=== PATIENT | male | born 1960 | race Caucasian/White ===

== ENCOUNTER 2020-03-19 10:04 | Emergency (ER) | payer MEDICARE, MEDICAID ==
[~2020-03-19] VITALS: Ht 177.8 cm; Wt 114.5 kg
[~2020-03-19 10:04] MED LIST: AMITRIPTYLINE H50 M1 PO; ASPIRIN 81M81 MG/TA2 PO; CYMBALTA 60MG60 MG PO; FLOMAX 0.40.4 MG/CAP PO; KAPSPARGO SPRIN25 MG PO; NEURONTIN800 MG/TAB PO; PROTONIX 40MG T40 MG PO; RT ALBUTER2.5 MG/0.5 IH; SINGULAIR 110 MG/TAB PO; SYNTHROID 0.10.15 MG PO; SYNTHROID0.112 MG/T PO; ZOCOR 40MG40 MG PO; ZOCOR 80MG80 MG PO; ZYPREXA10 MG PO
[2020-03-19 10:15] VITALS: TEMP 98.5
[2020-03-19 10:56] LABS: COLLECTION METHOD CLEAN CATCH
[2020-03-19 11:01] LABS: BASO % 0.4 % (0.0-2.0); EOS # 0.1 (0.0-0.7); EOS % 0.6 % (0-4.0); GRAN # 7.7 (1.4-6.5); GRAN % 78.7 % (42.2-75.2); HEMATOCRIT 47.2 % (42.0-52.0); HEMOGLOBIN 16.1 g/dl (13.5-18.0); LYMPH # 1.3 (1.2-3.4); LYMPH % 13.3 % (20.0-51.0); MEAN CELL VOLUME 91 fl (80.0-100.0); MEAN CORPUSCULAR HEMOGLOBIN 31 pg (27.0-31.0); MEAN CORPUSCULAR HGB CONC 34 g/dl (33.0-37.0); MEAN PLATELET VOLUME 11.1 fl (7.4-10.4); MONO # 0.7 (0.1-0.6); MONO % 6.7 % (1.7-9.3); PLATELET COUNT 261 K/mm3 (130-400); RED BLOOD COUNT 5.19 M/mm3 (4.20-5.60); REDCELL DISTRIBUTION WIDTH-CV 13.7 % (11.5-14.5)
[2020-03-19 11:07] LABS: PH 6 (5-8); SQUAMOUS EPITHELIAL 0-2 /hpf; URINE APPEARANCE Clear; URINE BACTERIA None Seen /hpf; URINE BILIRUBIN Negative (NEGATIVE); URINE BLOOD 2+ (NEGATIVE); URINE COLOR Yellow; URINE GLUCOSE Negative (NEGATIVE); URINE KETONE Negative (NEGATIVE); URINE LEUKOCYTE ESTERASE Negative (NEGATIVE); URINE NITRATE Negative (NEGATIVE); URINE PROTEIN(semi-quant) Negative (NEGATIVE); URINE UROBILINOGEN Negative (NEGATIVE); URINE WBC 0-2 /hpf
[2020-03-19 11:12] LABS: ALBUMIN 4.5 gm/dL (3.5-5.0); BILIRUBIN,TOTAL 0.9 mg/dL (0.0-1.0); CALCIUM 9.4 mg/dL (8.4-10.2); CREATININE, serum 0.99 (0.66-1.25); POTASSIUM 4.1 mmol/L (3.4-5.0); TOTAL PROTEIN 7.4 gm/dL (6.4-8.2)
[2020-03-19] MEDS ORDERED: PROTONIX20 MG PO (12:16)
[2020-03-19] MEDS ORDERED: ZOFRAN 4MG T4 MG/TAB PO (12:16)
[2020-03-19 12:43] VITALS: BP 118/89; PULSE 79
== END 2020-03-19 12:45 | disposition home or self-care (01) ==
LOC: COL.ER 10:04 → EDBD 10:06 → COL.ER 10:06
PROVIDERS: Nurse Practitioner Primary Care
DX: K29.70 Gastritis, unspecified, without bleeding (principal); Z90.89 Acquired absence of other organs; Z88.1 Allergy status to other antibiotic agents; Z88.6 Allergy status to analgesic agent
CPT/HCPCS: J7030; Q9967

== ENCOUNTER → 2020-05-07 | Outpatient (CLI) | payer MEDICARE, MEDICAID ==
[~2020-05-07] MED LIST changes: +PROTONIX20 MG PO; +ZOFRAN 4MG T4 MG/TAB PO
== END ==
LOC: COL.RAD 09:57
DX: E04.9 Nontoxic goiter, unspecified (principal)

== ENCOUNTER → 2020-07-25 | Outpatient (CLI) | payer MEDICARE, MEDICAID ==
[~2020-07-25] MED LIST changes: +BACTRIM DS 8001 TAB PO; +CARAFATE 1GM1 G PO; +IMODIUM 2MG CAPS2 MG PO; +LEVAQUIN 750MG750 M1 PO; +PROBIOTIC-MAJOR PO
== END ==
LOC: COL.RAD 13:12
DX: R22.1 Localized swelling, mass and lump, neck (principal)

== ENCOUNTER 2020-10-02 13:55 | Observation (INO) | payer MEDICARE, MEDICAID ==
[~2020-10-02] VITALS: Ht 177.8 cm; Wt 116.0 kg
[2020-10-02] VITALS (10 sets, daily range): BP systolic 131–154; BP diastolic 85–98; PULSE 86–137; TEMP 97–98.2
[~2020-10-02 13:55] MED LIST changes: -BACTRIM DS 8001 TAB PO; -CARAFATE 1GM1 G PO; -IMODIUM 2MG CAPS2 MG PO; -LEVAQUIN 750MG750 M1 PO; -PROBIOTIC-MAJOR PO
--- NOTE | 2020-10-02 14:50 | NUR ---
Patient states an attempt to self harm years in the past. report the patient has a great support system in place and is seeing a mental health professional regularly to monitor mental health.
[2020-10-02] MEDS ORDERED: CARAFATE 1GM1 G PO (15:23)
--- NOTE | 2020-10-02 19:15 | NUR ---
Arrived to room 342 from PACU. Oreinted to room/policy. New orders intitiated and post op vitals started. Call light in reach. Will monitor.
[2020-10-02 22:14] LABS: BASO # 0.1 (0.0-0.2); BASO % 0.3 % (0.0-2.0); EOS % 0.2 % (0-4.0); GRAN % 86.4 % (42.2-75.2); HEMOGLOBIN 17.6 g/dl (13.5-18.0); LYMPH # 1.4 (1.2-3.4); LYMPH % 7.4 % (20.0-51.0); MEAN CELL VOLUME 93 fl (80.0-100.0); MEAN CORPUSCULAR HEMOGLOBIN 31 pg (27.0-31.0); MEAN CORPUSCULAR HGB CONC 34 g/dl (33.0-37.0); MEAN PLATELET VOLUME 10.6 fl (7.4-10.4); MONO % 5.2 % (1.7-9.3); PLATELET COUNT 282 K/mm3 (130-400); RED BLOOD COUNT 5.67 M/mm3 (4.20-5.60); REDCELL DISTRIBUTION WIDTH-CV 14.5 % (11.5-14.5)
[2020-10-02 22:15] LABS: HEMATOCRIT 52.6 % (42.0-52.0)
[2020-10-02 22:24] LABS: ALBUMIN 4.6 gm/dL (3.5-5.0); BILIRUBIN,TOTAL 1.1 mg/dL (0.0-1.0); CALCIUM 9.7 mg/dL (8.4-10.2); CREATININE, serum 1.03 (0.66-1.25); POTASSIUM 3.6 mmol/L (3.4-5.0); TOTAL PROTEIN 8.2 gm/dL (6.4-8.2)
[2020-10-02 22:25] LABS: MAGNESIUM 1.8 mg/dL (1.6-2.3)
[2020-10-02 23:28] LABS: TSH w REFLEX 1.21 uIU/mL (0.465-4.680)
[2020-10-03 05:23] VITALS: BP 120/72; PULSE 85; TEMP 98.8
--- NOTE | 2020-10-03 06:00 | NUR ---
Rested off and on this shift. C/O a sore throat-chloreseptic spray provided with little relief. Also complained of heartburn-Maalox ordered and given with good relief. Voiding without difficulty. Tolerating PO. Dressing to right/back of neck still CDI. Denies pain/shortness of breath. VS remained stable-slight elevation in BP-Hospitalist aware. Has been NSR on tele since approx 0200. Denies current needs. Call light in reach. Will monitor.
--- NOTE | 2020-10-03 06:42 | NUR ---
Pt awake on the phone, denies needs at this time
[2020-10-03 07:21] LABS: HEMATOCRIT 49.2 % (42.0-52.0); HEMOGLOBIN 16.3 g/dl (13.5-18.0); MEAN CELL VOLUME 92 fl (80.0-100.0); MEAN CORPUSCULAR HEMOGLOBIN 30 pg (27.0-31.0); MEAN CORPUSCULAR HGB CONC 33 g/dl (33.0-37.0); MEAN PLATELET VOLUME 11.2 fl (7.4-10.4); PLATELET COUNT 267 K/mm3 (130-400); RED BLOOD COUNT 5.36 M/mm3 (4.20-5.60); REDCELL DISTRIBUTION WIDTH-CV 14.5 % (11.5-14.5)
[2020-10-03 07:34] VITALS: BP 122/76; PULSE 83; TEMP 98.7
[2020-10-03 07:49] LABS: CALCIUM 9.3 mg/dL (8.4-10.2); CREATININE, serum 0.98 (0.66-1.25); POTASSIUM 3.7 mmol/L (3.4-5.0)
[2020-10-03 08:38] LABS: BAND 8 % (0-10); LYMPHOCYTE 11 % (20.0-51.0); NEUTROPHILS 73 % (42.0-75.2)
[2020-10-03 08:40] LABS: PLATELET ESTIMATE NORMAL (NORMAL)
--- NOTE | 2020-10-03 09:00 | NUR ---
Dr Walker in with pt at this time
--- NOTE | 2020-10-03 10:11 | NUR ---
Fleet Maintenance Foreman met with the patient to complete intake. The patient prefers to speak primarily in [place]. The patient lives independently in [place] with his , Daisy. The patient has a cane in case he needs it. The patient's PCP is Dr. Izaguirre. The patient does not have advanced directives in the EMR. The patient does not know what pharamcy is used for medications. The patient contacted his , Daisy and put her on speaker phone. The patient receives his medications from [facility] and via mail from [facility]. The plan is for the patient to return home at discharge. *Discharge disposition: Home with spouse, Daisy
--- NOTE | 2020-10-03 11:30 | NUR ---
Pt did not eat much for breakfast/lunch, states doesn't feel well. reports that he was complaining of feeling nauseated, per patient, he stated that he is just a little nauseated, but does not want anything. Pt asking about taking a shower. Informed him that I would need to call the physician to ensure it was okay. No other needs, will continue to monitor
[2020-10-03 11:50] VITALS: BP 130/80; PULSE 85; TEMP 98.5
--- NOTE | 2020-10-03 14:59 | NUR ---
Assisting pt to get in the shower, linens changed. Pts is present in the room. No pain complaints at the incision site, just has complaints of sore throat. Incision does have some drainage, will replace dressing after his shower.
--- NOTE | 2020-10-03 15:07 | NUR ---
Initial visit; Patient thanked Senior Energy Consultant for looking in on him and offering God's blessings though declined spiritual care at this time.
--- NOTE | 2020-10-03 15:15 | NUR ---
Pt done in the shower. Reports feeling nauseated and a little dizzy. PRN nausea medication given. Respiratory in drawing ABGs. Will check VS
[2020-10-03 15:25] VITALS: BP 126/70; PULSE 92; TEMP 98.4
--- NOTE | 2020-10-03 15:49 | NUR ---
Pt still having complaints of feeling dizzy, and over all not feeling well. Attempted to call Dr Albert with no answer. Called and talked to Kwesi, his office nurse.
--- NOTE | 2020-10-03 18:17 | NUR ---
Pt reports not feeling as dizzy anymore. Still complains of his stomach not feeling well as well as having acid reflux and coughing up phlegm. Gave PRN mouth wash. Pt reports not wanting anything to eat at this time. stool sample sent down earlier, awaiting results
[2020-10-03 18:49] LABS: CLOSTRIDIUM DIFF A/B NEG; CLOSTRIDIUM DIFF A/B INTERP No C.diff present
--- NOTE | 2020-10-03 20:00 | NUR ---
Report received, assumed care for weight shifter. Assessment complete. A&Ox3-drowsy. Still with c/o sore throat. Chloreseptic spray at bedside but doesnt give much relief. States magic mouthwash works well. Has tolerated some PO intake-has had several containers of apple sauce and H2O but is not interested in much more. Dressing to right posterior neck CDI. LR infusing at 100ml/hr to right hand IV. Denies questions/concerns. Call light in reach. Will monitor.
[2020-10-03 21:00] VITALS: BP 137/83; PULSE 93; TEMP 98.8
[2020-10-04 00:16] VITALS: BP 145/93; PULSE 94; TEMP 98.5
--- NOTE | 2020-10-04 00:20 | NUR ---
Notified hospitalist of [facility] of patients c/o shortness of breath. States he is more short of air when getting up to bathroom. Also noted to have a slight elevation in blood pressure. New orders received and initiated.
--- NOTE | 2020-10-04 00:28 | NUR ---
Radiology notified of new orders for chest x ray.
--- NOTE | 2020-10-04 00:40 | NUR ---
Radiology at bedside for chest x ray.
--- NOTE | 2020-10-04 00:54 | NUR ---
Cardiopulm at bedside for ABG
--- NOTE | 2020-10-04 01:16 | NUR ---
O2@2L/NC per respiratory due to low O2 ABG.
[2020-10-04 01:20] LABS: ARTERIAL BLD GAS O2 SATURATION 92.6 % (92-100); ARTERIAL BLD GAS TCO2 CT 19.9; ARTERIAL BLOOD GAS BASE EXCESS -3.5 (-2-2); ARTERIAL BLOOD GAS PCO2 28.6 mmHg (35-45); ARTERIAL BLOOD GAS PO2 60.4 mmHg (80-100); ARTERIAL BLOOD GAS pH 7.44 (7.35-7.45)
--- NOTE | 2020-10-04 02:30 | NUR ---
Continues to have very watery stools. Discussed with [facility] Snell and new orders placed. Instructed patient to call with next stool so it can be collected. Verbalizes understanding. Call light in reach. Will monitor.
--- NOTE | 2020-10-04 02:53 | NUR ---
LR restarted at this time at 60ml/hr per dr order.
[2020-10-04 04:00] VITALS: BP 143/91; PULSE 97; TEMP 97.4
--- NOTE | 2020-10-04 05:35 | NUR ---
Did not rest much this shift due to liquid stool. Has had episodes of indigestion but no nausea. DId speak with this AM to help translate. states patient has battled indigestion for years and takes maalox regularly at home. O2 continues @2L/NC. Blood pressure slightly elevated-Hospitalist aware. Denies questions/concerns. Call light in reach. Will monitor.
[2020-10-04 06:31] LABS: HEMATOCRIT 49.7 % (42.0-52.0); HEMOGLOBIN 16.9 g/dl (13.5-18.0); MEAN CELL VOLUME 91 fl (80.0-100.0); MEAN CORPUSCULAR HEMOGLOBIN 31 pg (27.0-31.0); MEAN CORPUSCULAR HGB CONC 34 g/dl (33.0-37.0); MEAN PLATELET VOLUME 10.5 fl (7.4-10.4); PLATELET COUNT 283 K/mm3 (130-400); RED BLOOD COUNT 5.48 M/mm3 (4.20-5.60); REDCELL DISTRIBUTION WIDTH-CV 14.4 % (11.5-14.5)
[2020-10-04 06:45] LABS: ALBUMIN 4.4 gm/dL (3.5-5.0); BILIRUBIN,TOTAL 1.5 mg/dL (0.0-1.0); CALCIUM 9.5 mg/dL (8.4-10.2); POTASSIUM 3.7 mmol/L (3.4-5.0); TOTAL PROTEIN 7.9 gm/dL (6.4-8.2)
[2020-10-04 07:21] LABS: BAND 5 % (0-10); LYMPHOCYTE 8 % (20.0-51.0); NEUTROPHILS 75 % (42.0-75.2); PLATELET ESTIMATE NORMAL (NORMAL)
[2020-10-04 08:44] VITALS: BP 126/85; PULSE 92; TEMP 97.4
--- NOTE | 2020-10-04 09:00 | NUR ---
Pt continues to go to the restroom often with liquid stool. PRN immodium given. Pt reports minimal pain at the incision site. Still does not feel up to eating or drinking much. No other needs verbalized, encouraged some toast or applesauce which he agreed to try
--- NOTE | 2020-10-04 10:30 | NUR ---
Pt reports that the immodium helped. Overall feels well. Dr Walker has been to see patient. Pt denies any needs
--- NOTE | 2020-10-04 11:40 | NUR ---
Hospitalist has been in to see patient. Pt feels comfortable going home as he reports feeling better. States he is not having liquid stool as often. Did give another dose of immodium. Informed him to notify nursing when his arrives to go over paperwork
[2020-10-04] MEDS ORDERED: ZOFRAN 4MG T4 MG/TAB PO (11:41)
[2020-10-04] MEDS ORDERED: LEVAQUIN 750MG750 M1 PO (11:42)
[2020-10-04] MEDS ORDERED: PROBIOTIC-MAJOR PO (11:44)
--- NOTE | 2020-10-04 13:00 | NUR ---
Reviewed discharge instructions with pt and his to include follow up appoitments and prescriptions. All questions answered, int removed from right hand and pt escorted out
[2020-10-04] MEDS ORDERED: IMODIUM 2MG CAPS2 MG PO (14:21)
--- NOTE | 2020-10-04 14:21 | NUR ---
Tube Builder attended clinical rounds with the team. Patient is mostly [place] speaking. Hospitalist used medical sales representative line. The patient is currently on oxygen. An exercise oximetry was ordered. The patient did not qualify for oxygen. The patient is independent and discharged home this day, 10/04 with family. There are no additional needs.
== END 2020-10-04 13:20 | disposition home or self-care (01) ==
LOC: SDCO 13:55 → SURG 19:31
PROVIDERS: Internal Medicine Pulmonary Disease; Physician Assistant; Student in an Organized Health Care Education/Training Program; ADMIT Surgery
DX: D17.0 Benign lipomatous neoplasm of skin and subcutaneous tissue of head, face and neck (principal); R68.89 Other general symptoms and signs; A49.02 Methicillin resistant Staphylococcus aureus infection, unspecified site; J18.9 Pneumonia, unspecified organism; I48.0 Paroxysmal atrial fibrillation; R09.02 Hypoxemia; I10 Essential (primary) hypertension; G47.33 Obstructive sleep apnea (adult) (pediatric); I27.20 Pulmonary hypertension, unspecified; J44.9 Chronic obstructive pulmonary disease, unspecified; F29 Unspecified psychosis not due to a substance or known physiological condition; R19.7 Diarrhea, unspecified; E89.0 Postprocedural hypothyroidism; N40.0 Benign prostatic hyperplasia without lower urinary tract symptoms; K21.9 Gastro-esophageal reflux disease without esophagitis; E87.1 Hypo-osmolality and hyponatremia; E78.5 Hyperlipidemia, unspecified; E78.00 Pure hypercholesterolemia, unspecified; R53.81 Other malaise; E66.01 Morbid (severe) obesity due to excess calories; Z68.35 Body mass index [BMI] 35.0-35.9, adult; Z79.82 Long term (current) use of aspirin; Z87.891 Personal history of nicotine dependence; Z79.890 Hormone replacement therapy; Z79.899 Other long term (current) drug therapy
CPT/HCPCS: G0378; J0690; J1650; J1885; J2405; J2704; J7120

== ENCOUNTER → 2020-11-13 | Outpatient (CLI) | payer MEDICARE ==
[~2020-11-13] MED LIST changes: +BACTRIM DS 8001 TAB PO; +CARAFATE 1GM1 G PO; +IMODIUM 2MG CAPS2 MG PO; +LEVAQUIN 750MG750 M1 PO; +PROBIOTIC-MAJOR PO
== END ==
LOC: COL.RAD 13:44
DX: R05 Cough (principal)
CPT/HCPCS: Q9967

== ENCOUNTER 2021-02-17 13:58 | Emergency (ER) | payer MEDICARE ==
[~2021-02-17] VITALS: Ht 177.8 cm; Wt 115.5 kg
[~2021-02-17 13:58] MED LIST changes: -BACTRIM DS 8001 TAB PO
[2021-02-17 14:15] VITALS: TEMP 98
[2021-02-17] MEDS ORDERED: BACTRIM DS 8001 TAB PO (14:15)
[2021-02-17 14:44] LABS: COLLECTION METHOD CLEAN CATCH
[2021-02-17 14:48] LABS: BASO # 0.1 K/mm3 (0.0-0.2); BASO % 0.8 % (0.0-2.0); EOS # 0.2 K/mm3 (0.0-0.7); EOS % 2.3 % (0-4.0); GRAN # 4.9 K/mm3 (1.4-6.5); GRAN % 61.2 % (42.2-75.2); HEMATOCRIT 46.3 % (42.0-52.0); HEMOGLOBIN 15.9 g/dl (13.5-18.0); LYMPH # 2.2 K/mm3 (1.2-3.4); LYMPH % 27.1 % (20.0-51.0); MEAN CELL VOLUME 90 fl (80.0-100.0); MEAN CORPUSCULAR HEMOGLOBIN 31 pg (27.0-31.0); MEAN CORPUSCULAR HGB CONC 34 g/dl (33.0-37.0); MONO # 0.7 K/mm3 (0.1-0.6); MONO % 8.1 % (1.7-9.3); PLATELET COUNT 240 K/mm3 (130-400); RED BLOOD COUNT 5.13 M/mm3 (4.20-5.60); REDCELL DISTRIBUTION WIDTH-CV 14.2 % (11.5-14.5)
[2021-02-17 14:51] LABS: MUCOUS Present /lpf; PH 5 (5-8); SQUAMOUS EPITHELIAL 0-2 /hpf; URINE APPEARANCE Clear; URINE BACTERIA None Seen /hpf; URINE BILIRUBIN Negative (NEGATIVE); URINE BLOOD Negative (NEGATIVE); URINE COLOR Yellow; URINE GLUCOSE Negative (NEGATIVE); URINE KETONE Negative (NEGATIVE); URINE LEUKOCYTE ESTERASE Negative (NEGATIVE); URINE NITRATE Negative (NEGATIVE); URINE PROTEIN(semi-quant) Negative (NEGATIVE)
[2021-02-17 15:10] LABS: BILIRUBIN,TOTAL 0.5 mg/dL (0.2-1.2); C-REACTIVE PROTEIN 0.03 mg/dL (0.00-0.50); CALCIUM 9.3 mg/dL (8.4-10.2); CREATININE, serum 1.19 mg/dL (0.72-1.25); POTASSIUM 4.3 mmol/L (3.5-4.5); TOTAL PROTEIN 7.1 gm/dL (6.2-8.1)
[2021-02-17 17:11] VITALS: BP 133/85; PULSE 62
== END 2021-02-17 17:14 | disposition home or self-care (01) ==
LOC: COL.ER 13:58
PROVIDERS: Physician Assistant
DX: R10.30 Lower abdominal pain, unspecified (principal); N39.0 Urinary tract infection, site not specified; J44.9 Chronic obstructive pulmonary disease, unspecified; I10 Essential (primary) hypertension; E66.01 Morbid (severe) obesity due to excess calories; E03.9 Hypothyroidism, unspecified; F32.A Depression, unspecified; I48.91 Unspecified atrial fibrillation; K21.9 Gastro-esophageal reflux disease without esophagitis; Z68.36 Body mass index [BMI] 36.0-36.9, adult; Z79.890 Hormone replacement therapy; Z79.82 Long term (current) use of aspirin; Z79.899 Other long term (current) drug therapy
CPT/HCPCS: J2270; J2405; J7030; Q9967

== ENCOUNTER 2021-07-28 11:23 | Emergency (ER) | payer MEDICARE ==
[~2021-07-28] VITALS: Ht 177.8 cm; Wt 116.4 kg
[~2021-07-28 11:23] MED LIST changes: +BACTRIM DS 8001 TAB PO
[2021-07-28 12:11] LABS: COLLECTION METHOD CLEAN CATCH
[2021-07-28 12:15] LABS: BASO % 0.3 % (0.0-2.0); EOS # 0.1 K/mm3 (0.0-0.7); EOS % 1.4 % (0.0-4.0); GRAN # 7.2 K/mm3 (1.4-6.5); GRAN % 74.3 % (42.2-75.2); HEMATOCRIT 46.5 % (42.0-52.0); HEMOGLOBIN 16.2 g/dl (13.5-18.0); LYMPH # 1.6 K/mm3 (1.2-3.4); LYMPH % 16.6 % (20.0-51.0); MEAN CELL VOLUME 87 fl (80.0-100.0); MEAN CORPUSCULAR HEMOGLOBIN 31 pg (27-31); MEAN CORPUSCULAR HGB CONC 35 g/dl (33.0-37.0); MEAN PLATELET VOLUME 10.2 fl (7.4-10.4); MONO # 0.7 K/mm3 (0.1-0.6); PLATELET COUNT 242 K/mm3 (130-400); RED BLOOD COUNT 5.32 M/mm3 (4.20-5.60)
[2021-07-28 12:19] LABS: MUCOUS Present (NOT PRESENT); PH 5 (5-8); SQUAMOUS EPITHELIAL None Seen /hpf (0-10); URINE APPEARANCE Clear (CLEAR/HAZY); URINE BACTERIA None Seen /hpf (NONE SEEN); URINE BILIRUBIN Negative (NEGATIVE); URINE BLOOD 2+ (NEGATIVE); URINE COLOR Yellow (YELLOW); URINE GLUCOSE Negative (NEGATIVE); URINE KETONE Negative (NEGATIVE); URINE LEUKOCYTE ESTERASE Negative (NEGATIVE); URINE NITRATE Negative (NEGATIVE); URINE PROTEIN(semi-quant) Negative (NEGATIVE); URINE UROBILINOGEN Negative (NEGATIVE)
[2021-07-28 12:32] LABS: ALBUMIN 4.3 gm/dL (3.5-5.0); BILIRUBIN,TOTAL 1.3 mg/dL (0.2-1.2); CALCIUM 9.4 mg/dL (8.4-10.2); CREATININE, serum 1.04 mg/dL (0.72-1.25); POTASSIUM 4.3 mmol/L (3.5-4.5); TOTAL PROTEIN 7.5 gm/dL (6.2-8.1)
[2021-07-28] MEDS ORDERED: BENTYL 10MG10 MG/CAP PO (14:16)
[2021-07-28 14:26] VITALS: BP 121/80; PULSE 78; TEMP 97.8
== END 2021-07-28 14:26 | disposition home or self-care (01) ==
LOC: COL.ER 11:23
PROVIDERS: Physician Assistant
DX: K76.0 Fatty (change of) liver, not elsewhere classified (principal)
CPT/HCPCS: J2405; Q9967

== ENCOUNTER 2021-08-18 11:08 | Emergency (ER) | payer MEDICARE, MEDICAID ==
[~2021-08-18] VITALS: Ht 175.3 cm; Wt 109.1 kg
[~2021-08-18 11:08] MED LIST changes: +BENTYL 10MG10 MG/CAP PO
[2021-08-18 11:18] VITALS: TEMP 98.5
[2021-08-18 11:47] LABS: BASO % 0.4 % (0.0-2.0); EOS # 0.2 K/mm3 (0.0-0.7); EOS % 2.5 % (0.0-4.0); GRAN # 5.4 K/mm3 (1.4-6.5); GRAN % 70.1 % (42.2-75.2); HEMATOCRIT 47.8 % (42.0-52.0); HEMOGLOBIN 16.2 g/dl (13.5-18.0); LYMPH # 1.5 K/mm3 (1.2-3.4); LYMPH % 18.8 % (20.0-51.0); MEAN CELL VOLUME 89 fl (80.0-100.0); MEAN CORPUSCULAR HEMOGLOBIN 30 pg (27-31); MEAN CORPUSCULAR HGB CONC 34 g/dl (33.0-37.0); MEAN PLATELET VOLUME 10.3 fl (7.4-10.4); MONO # 0.6 K/mm3 (0.1-0.6); MONO % 7.8 % (1.7-9.3); PLATELET COUNT 221 K/mm3 (130-400); RED BLOOD COUNT 5.35 M/mm3 (4.20-5.60); REDCELL DISTRIBUTION WIDTH-CV 14.6 % (11.5-14.5)
[2021-08-18 12:05] LABS: ERYTHROCYTE SEDIMENTATION RATE 2 mm/hr (0-30)
[2021-08-18 12:31] LABS: ALANINE AMINOTRANSFERASE 38 U/L (0-55); ALBUMIN 4.2 gm/dL (3.4-4.8); ALKALINE PHOSPHATASE 103 U/L (40-150); ANION GAP 10 mmol/L (7-16); AST,SGOT 26 U/L (5-34); BLOOD UREA NITROGEN 12 mg/dL (8-26); C-REACTIVE PROTEIN 0.03 mg/dL (0.00-0.50); CALCIUM 9.2 mg/dL (8.4-10.2); CARBON DIOXIDE 22 mmol/L (23-31); CHLORIDE 106 mmol/L (98-107); CREATININE, serum 0.96 mg/dL (0.72-1.25); GLUCOSE 125 mg/dL (70-99); POTASSIUM 3.9 mmol/L (3.5-4.5); SODIUM 138 mmol/L (136-145)
[2021-08-18 12:39] LABS: COLLECTION METHOD CLEAN CATCH
[2021-08-18 12:40] LABS: TROPONIN-I < 0.010 ng/mL (0.00-0.033)
[2021-08-18 12:45] LABS: MUCOUS Present (NOT PRESENT); PH 5 (5-8); SQUAMOUS EPITHELIAL None Seen /hpf (0-10); URINE APPEARANCE Clear (CLEAR/HAZY); URINE BACTERIA None Seen /hpf (NONE SEEN); URINE BILIRUBIN Negative (NEGATIVE); URINE BLOOD 1+ (NEGATIVE); URINE COLOR Yellow (YELLOW); URINE GLUCOSE Negative (NEGATIVE); URINE KETONE Negative (NEGATIVE); URINE LEUKOCYTE ESTERASE Negative (NEGATIVE); URINE NITRATE Negative (NEGATIVE); URINE PROTEIN(semi-quant) Negative (NEGATIVE); URINE UROBILINOGEN Negative (NEGATIVE)
[2021-08-18 14:06] VITALS: BP 101/65; PULSE 60
[2021-08-20] MEDS ORDERED: ULTRAM 50MG TAB50 MG PO (03:31)
[2021-08-20] MEDS ORDERED: VALTREX1 GM PO (03:31)
[2021-08-20] MEDS ORDERED: PREDNISONE20 MG PO (04:07)
[2021-08-20] MEDS ORDERED: PERCOCET 325 MG1 TA2 PO (04:38)
== END 2021-08-18 14:12 | disposition home or self-care (01) ==
LOC: COL.ER 11:08
PROVIDERS: Emergency Medicine
DX: H53.8 Other visual disturbances (principal); Z98.41 Cataract extraction status, right eye
CPT/HCPCS: J0780; J1200; Q9967

== ENCOUNTER 2021-08-29 05:47 | Emergency (ER) | payer MEDICARE, MEDICAID ==
[~2021-08-29] VITALS: Ht 182.9 cm; Wt 95.5 kg
[~2021-08-29 05:47] MED LIST changes: +PERCOCET 325 MG1 TA2 PO; +PREDNISONE20 MG PO; +ULTRAM 50MG TAB50 MG PO; +VALTREX1 GM PO
[2021-08-29 05:54] VITALS: TEMP 98.6
[2021-08-29 06:20] LABS: BASO % 0.2 % (0.0-2.0); EOS # 0.2 K/mm3 (0.0-0.7); EOS % 1.2 % (0.0-4.0); GRAN # 8.8 K/mm3 (1.4-6.5); GRAN % 70.6 % (42.2-75.2); HEMATOCRIT 48.1 % (42.0-52.0); HEMOGLOBIN 16.3 g/dl (13.5-18.0); LYMPH # 2.4 K/mm3 (1.2-3.4); LYMPH % 19.1 % (20.0-51.0); MEAN CELL VOLUME 89 fl (80.0-100.0); MEAN CORPUSCULAR HEMOGLOBIN 30 pg (27-31); MEAN CORPUSCULAR HGB CONC 34 g/dl (33.0-37.0); MEAN PLATELET VOLUME 10.4 fl (7.4-10.4); MONO % 7.9 % (1.7-9.3); PLATELET COUNT 254 K/mm3 (130-400); RED BLOOD COUNT 5.39 M/mm3 (4.20-5.60); REDCELL DISTRIBUTION WIDTH-CV 14.6 % (11.5-14.5)
[2021-08-29 06:35] LABS: ALANINE AMINOTRANSFERASE 40 U/L (0-55); ALBUMIN 4.1 gm/dL (3.4-4.8); ALKALINE PHOSPHATASE 117 U/L (40-150); ANION GAP 10 mmol/L (7-16); AST,SGOT 23 U/L (5-34); BILIRUBIN,TOTAL 0.7 mg/dL (0.2-1.2); BLOOD UREA NITROGEN 10 mg/dL (8-26); CALCIUM 8.9 mg/dL (8.4-10.2); CARBON DIOXIDE 21 mmol/L (23-31); CHLORIDE 104 mmol/L (98-107); CREATININE, serum 1.17 mg/dL (0.72-1.25); GLUCOSE 116 mg/dL (70-99); LIPASE 20 U/L (8-78); POTASSIUM 3.9 mmol/L (3.5-4.5); SODIUM 135 mmol/L (136-145); TOTAL PROTEIN 6.8 gm/dL (6.2-8.1)
[2021-08-29 06:42] LABS: TROPONIN-I < 0.010 ng/mL (0.00-0.033)
[2021-08-29 09:04] VITALS: BP 115/85; PULSE 65
== END 2021-08-29 09:10 | disposition home or self-care (01) ==
LOC: COL.ER 05:47
PROVIDERS: Student in an Organized Health Care Education/Training Program
DX: R10.9 Unspecified abdominal pain (principal); R07.9 Chest pain, unspecified; E87.1 Hypo-osmolality and hyponatremia; D72.829 Elevated white blood cell count, unspecified
CPT/HCPCS: J1885; Q9967

== ENCOUNTER 2022-05-26 10:58 | Emergency (ER) | payer MEDICARE, MEDICAID ==
[~2022-05-26] VITALS: Ht 175.3 cm; Wt 115.5 kg
[2022-05-26 11:08] VITALS: TEMP 98.7
[2022-05-26 11:51] LABS: BASO # 0.1 K/mm3 (0.0-0.2); BASO % 0.7 % (0.0-2.0); EOS # 0.2 K/mm3 (0.0-0.7); EOS % 2.2 % (0.0-4.0); GRAN # 5.7 K/mm3 (1.4-6.5); HEMATOCRIT 48.5 % (42.0-52.0); HEMOGLOBIN 15.9 g/dl (13.5-18.0); LYMPH # 1.9 K/mm3 (1.2-3.4); LYMPH % 21.9 % (20.0-51.0); MEAN CELL VOLUME 93 fl (80.0-100.0); MEAN CORPUSCULAR HEMOGLOBIN 31 pg (27-31); MEAN CORPUSCULAR HGB CONC 33 g/dl (33.0-37.0); MEAN PLATELET VOLUME 10.4 fl (7.4-10.4); MONO # 0.7 K/mm3 (0.1-0.6); MONO % 7.8 % (1.7-9.3); PLATELET COUNT 212 K/mm3 (130-400); RED BLOOD COUNT 5.21 M/mm3 (4.20-5.60); REDCELL DISTRIBUTION WIDTH-CV 13.9 % (11.5-14.5)
[2022-05-26 12:07] LABS: BILIRUBIN,TOTAL 0.8 mg/dL (0.2-1.2); CALCIUM 9.5 mg/dL (8.4-10.2); CREATININE, serum 1.22 mg/dL (0.72-1.25); POTASSIUM 4.6 mmol/L (3.5-4.5)
[2022-05-26 12:22] LABS: COLLECTION METHOD CLEAN CATCH
[2022-05-26 12:31] LABS: MUCOUS Present (NOT PRESENT); SQUAMOUS EPITHELIAL 0-2 /hpf (0-10); URINE APPEARANCE Clear (CLEAR/HAZY); URINE BACTERIA None Seen /hpf (NONE SEEN); URINE COLOR Yellow (YELLOW); URINE RBC 0-2 /hpf (0-2)
[2022-05-26 12:32] LABS: PH 5.5 (5.0-8.5); URINE BLOOD 2+ (NEGATIVE); URINE GLUCOSE Negative (NEGATIVE); URINE KETONE Negative (NEGATIVE); URINE NITRATE Negative (NEGATIVE); URINE PROTEIN(semi-quant) Negative (NEGATIVE); URINE UROBILINOGEN 0.2 E.U/dL (0.2-1.0)
[2022-05-26 14:56] VITALS: BP 127/83; PULSE 62
== END 2022-05-26 14:58 | disposition home or self-care (01) ==
LOC: COL.ER 10:58
PROVIDERS: Physician Assistant
DX: R10.84 Generalized abdominal pain (principal); K59.00 Constipation, unspecified; Z87.19 Personal history of other diseases of the digestive system; Z90.49 Acquired absence of other specified parts of digestive tract; Z88.5 Allergy status to narcotic agent
CPT/HCPCS: J2270; J2405; J7030; Q9967

== ENCOUNTER 2022-06-03 06:16 | Day surgery (SDC) | payer MEDICARE, MEDICAID ==
[~2022-06-03] VITALS: Ht 177.8 cm; Wt 111.2 kg
[2022-06-03] MEDS ORDERED: SYNTHROID0.125 MG/T PO (07:28)
[2022-06-03] MEDS ORDERED: LIPITOR 40MG TA40 MG PO (07:33)
[2022-06-03] MEDS ORDERED: NEURONTIN800 MG/TAB PO (07:35)
[2022-06-03] MEDS ORDERED: QUERCETIN500 M1 PO (07:36)
[2022-06-03] MEDS ORDERED: CIALIS20 MG PO (07:36)
[2022-06-03 08:30] VITALS: BP 114/87; PULSE 84; TEMP 96.8
--- NOTE | 2022-06-03 08:30 | NUR ---
0830 PATIENT RETURNS TO ROOM 1 VIA CART. PATIENT IS DROWSY, ALERTS EASILY TO VERBAL STIMULI. PATIENT AMBULATES BACK TO RECLINER IN ROOM WITH THE ASSISTANCE OF 2 NURSES. PATIENT IS IN ROOM. RESPIRTATIONS EVEN AND UNLABORED. VITAL SIGNS OBTAINED. 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 PATIENT TRANSLATES FOR PATIENT. 0830 DOCTOR IN TO SPEAK WITH PATIENT AND PATIENT . 0835 PATIENT REQUESTED A MUFFIN, APPLE JUICE AND A SPRITE. NO DIFFICULTIES SWALLOWING. 0855 DISCONTINUED IV FROM RIGHT AC WITH NO DIFFICULTIES. 0858 PATIENT DRESSES SELF. 0900 THIS NURSE REVIEWED DISCHARGE INSTRUCTIONS WITH WHO TRANSLATED TO HER , THE PATIENT. BOTH VERBALIZED UNDERSTANDING WITH NO QUESTIONS OR CONCERNS. 0910 PATIENT DISCHARGES FROM UNIT VIA WHEELCHAIR.
[2022-06-03 08:45] VITALS: BP 129/85; PULSE 70
[2022-06-03 09:00] VITALS: BP 106/83; PULSE 64
[2022-06-03 11:08] VITALS: BP 139/93; PULSE 80; TEMP 96.8
== END 2022-06-03 09:10 | disposition home or self-care (01) ==
LOC: SDCO 06:16
DX: K63.5 Polyp of colon (principal); K29.80 Duodenitis without bleeding; K26.3 Acute duodenal ulcer without hemorrhage or perforation; K52.9 Noninfective gastroenteritis and colitis, unspecified; K64.0 First degree hemorrhoids; G47.33 Obstructive sleep apnea (adult) (pediatric); I10 Essential (primary) hypertension; F17.210 Nicotine dependence, cigarettes, uncomplicated; Z79.899 Other long term (current) drug therapy
CPT/HCPCS: J2704; J7120

== ENCOUNTER → 2022-06-23 | Outpatient (CLI) | payer MEDICARE, MEDICAID ==
[~2022-06-23] MED LIST changes: +CIALIS20 MG PO; +LIPITOR 40MG TA40 MG PO; +QUERCETIN500 M1 PO; +SYNTHROID0.125 MG/T PO
== END ==
LOC: COL.RAD 06:07
DX: R10.11 Right upper quadrant pain (principal)
CPT/HCPCS: A9537; J2805